=== PATIENT | male | born 1935 | race Caucasian/White ===

== ENCOUNTER 2018-08-02 11:24 | Inpatient (IN) | payer MEDICARE ==
[2018-08-02 12:10] LABS: ADD MAN DIFF? NO
[2018-08-02 12:19] LABS: WHITE BLOOD COUNT 9.8 10^3/ul (4.8-10.8)
[2018-08-02 12:19] LABS: BASOPHIL # 0.1 10^3/ul (0.0-0.1); BASOPHILS % 0.6 % (0.0-2.0); EOSINOPHILS # 0.3 10^3/ul (0.0-0.5); EOSINOPHILS % 3.2 % (0.0-7.0); HEMOGLOBIN 11.1 g/dl (14.0-18.0); LYMPHOCYTES # 2.2 10^3/ul (0.8-2.9); LYMPHOCYTES % 22.7 % (15.0-51.0); MEAN CORPUSCULAR HEMOGLOBIN 27.3 pg (29.0-33.0); MEAN CORPUSCULAR HGB CONC 30.8 g/dl (32.0-37.0); MEAN CORPUSCULAR VOLUME 88.7 fl (82.0-101.0); MEAN PLATELET VOLUME 8.3 fl (7.4-10.4); MONOCYTE # 0.9 10^3/ul (0.3-0.9); MONOCYTES % 9.1 % (0.0-11.0); NEUTROPHIL # 6.2 10^3/ul (1.6-7.5); NEUTROPHILS % 63.9 % (39.0-77.0); PLATELET COUNT 248 10^3/UL (140-415); RED BLOOD COUNT 4.06 10^6/ul (4.70-6.10); RED CELL DISTRIBUTION WIDTH 16.3 % (11.5-14.5)
[2018-08-02 12:35] LABS: ALANINE AMINOTRANSFERASE 17 IU/L (13-69); ALBUMIN 3.6 g/dl (3.3-4.9); ALBUMIN/GLOBULIN RATIO 1.12; ALKALINE PHOSPHATASE 95 IU/L (42-121); ANION GAP 10 (5-13); ASPARTATE AMINO TRANSFERASE 18 IU/L (15-46); BLOOD UREA NITROGEN 19 mg/dl (7-20); CALCIUM 9.3 mg/dl (8.4-10.2); CARBON DIOXIDE 25 mmol/L (21-31); CHLORIDE 106 mmol/L (97-110); CHOL/HDL RATIO 4.4 RATIO; CHOLESTEROL 155 mg/dl (100-200); CREATININE 1.23 mg/dl (0.61-1.24); GLUCOSE 98 mg/dl (70-220); HDL CHOLESTEROL 35 mg/dl (31-75); LDL CHOLESTEROL,CALCULATED 71 mg/dl; POTASSIUM 4.4 mmol/L (3.5-5.1); SODIUM 141 mmol/L (135-144); TOTAL PROTEIN 6.8 g/dl (6.1-8.1); TRIGLYCERIDES 244 mg/dl (0-149)
[2018-08-02 12:36] LABS: INR 0.92; PROTIME 12.5 Sec (11.9-14.9)
[2018-08-02 12:46] LABS: TROPONIN-I 0.021 ng/ml (0.000-0.120)
[2018-08-02] MEDS: ASPIRIN 325 MG TAB PO (12:59)
[2018-08-02 13:13] LABS: HEMOGLOBIN A1C 5.1 % (0-5.9)
[2018-08-02 16:51] LABS: ADD UMIC NO; UR ASCORBIC ACID 40 mg/dL (NEGATIVE); UR BILIRUBIN (Dip) NEGATIVE (NEGATIVE); UR BLOOD (Dip) NEGATIVE (NEGATIVE); UR CLARITY CLEAR (CLEAR); UR COLOR YELLOW (YELLOW); UR GLUCOSE (Dip) NEGATIVE (NEGATIVE); UR KETONES (Dip) NEGATIVE (NEGATIVE); UR LEUKOCYTE ESTERASE (Dip) NEGATIVE Leu/ul (NEGATIVE); UR NITRITE (Dip) NEGATIVE (NEGATIVE); UR TOTAL PROTEIN (Dip) NEGATIVE (NEGATIVE); UR UROBILINOGEN (Dip) NEGATIVE (NEGATIVE)
[2018-08-02 17:15] LABS: AMPHETAMINE/METHAMPHETAMINE Negative (NEGATIVE); BARBITURATES Negative (NEGATIVE); BENZODIAZEPINES Negative (NEGATIVE); CANNABINOIDS Negative (NEGATIVE); COCAINE Negative (NEGATIVE); OPIATES Negative (NEGATIVE)
[2018-08-02] MEDS ORDERED: ATORVASTATIN 10 MG TAB PO (21:00)
[2018-08-02] MEDS: traZODone 50 MG TAB PO (21:44)
[2018-08-03 05:47] LABS: ADD MAN DIFF? NO
[2018-08-03 05:52] LABS: WHITE BLOOD COUNT 8.7 10^3/ul (4.8-10.8)
[2018-08-03 05:53] LABS: BASOPHIL # 0.1 10^3/ul (0.0-0.1); BASOPHILS % 0.7 % (0.0-2.0); EOSINOPHILS # 0.4 10^3/ul (0.0-0.5); EOSINOPHILS % 4.3 % (0.0-7.0); HEMATOCRIT 32.7 % (42.0-52.0); HEMOGLOBIN 10.1 g/dl (14.0-18.0); LYMPHOCYTES # 2.6 10^3/ul (0.8-2.9); LYMPHOCYTES % 29.3 % (15.0-51.0); MEAN CORPUSCULAR HEMOGLOBIN 27.4 pg (29.0-33.0); MEAN CORPUSCULAR HGB CONC 30.9 g/dl (32.0-37.0); MEAN CORPUSCULAR VOLUME 88.9 fl (82.0-101.0); MEAN PLATELET VOLUME 8.1 fl (7.4-10.4); MONOCYTE # 0.8 10^3/ul (0.3-0.9); MONOCYTES % 9.5 % (0.0-11.0); NEUTROPHIL # 4.9 10^3/ul (1.6-7.5); NEUTROPHILS % 55.9 % (39.0-77.0); PLATELET COUNT 230 10^3/UL (140-415); RED BLOOD COUNT 3.68 10^6/ul (4.70-6.10); RED CELL DISTRIBUTION WIDTH 16.2 % (11.5-14.5)
[2018-08-03 06:13] LABS: ANION GAP 8 (5-13); BLOOD UREA NITROGEN 21 mg/dl (7-20); CARBON DIOXIDE 26 mmol/L (21-31); CHLORIDE 108 mmol/L (97-110); GLUCOSE 94 mg/dl (70-220); PHOSPHORUS 4.1 mg/dl (2.5-4.9); POTASSIUM 4.1 mmol/L (3.5-5.1); SODIUM 142 mmol/L (135-144)
[2018-08-03] MEDS: LOSARTAN 50 MG TAB PO (08:17)
[2018-08-03] MEDS: CLOPIDOGREL 75 MG TAB PO (08:17)
[2018-08-03] MEDS: ATENOLOL 25 MG TAB PO (08:18)
[2018-08-03] MEDS ORDERED: ATENOLOL 50 MG TAB PO (09:00)
[2018-08-03] MEDS ORDERED: LOSARTAN 50 MG TAB PO (09:00)
[2018-08-03] MEDS ORDERED: ASPIRIN 325 MG TAB PO (09:00)
[2018-08-03] MEDS: BUPROPION (XL) 150 MG TAB PO (10:26)
[2018-08-03] MEDS: DOCUSATE SODIUM 100 MG CAP PO ×2 (11:29→20:59)
[2018-08-03] MEDS: POLYETHYLENE GLYCOL 17 GM PACKET PO (12:31)
[2018-08-03] MEDS: traZODone 50 MG TAB PO (20:59)
[2018-08-03] MEDS: ATORVASTATIN 40 MG TAB PO (20:59)
[2018-08-04] MEDS: BUPROPION (XL) 150 MG TAB PO (08:47)
[2018-08-04] MEDS: DOCUSATE SODIUM 100 MG CAP PO ×2 (08:49→20:22)
[2018-08-04] MEDS: LOSARTAN 50 MG TAB PO (08:49)
[2018-08-04] MEDS: CLOPIDOGREL 75 MG TAB PO (08:49)
[2018-08-04] MEDS: ATENOLOL 25 MG TAB PO (08:49)
[2018-08-04] MEDS: POLYETHYLENE GLYCOL 17 GM PACKET PO (17:41)
[2018-08-04] MEDS: BALSAM PERU/CASTOR OIL 60 GM TUBE TOP (17:41)
[2018-08-04] MEDS: ATORVASTATIN 40 MG TAB PO (20:22)
[2018-08-04] MEDS: traZODone 50 MG TAB PO (20:22)
[2018-08-05] MEDS: CLOPIDOGREL 75 MG TAB PO (08:18)
[2018-08-05] MEDS: BUPROPION (XL) 150 MG TAB PO (08:18)
[2018-08-05] MEDS: LOSARTAN 50 MG TAB PO (08:18)
[2018-08-05] MEDS: DOCUSATE SODIUM 100 MG CAP PO ×2 (08:18→21:24)
[2018-08-05] MEDS: ATENOLOL 25 MG TAB PO (08:18)
[2018-08-05] MEDS: BALSAM PERU/CASTOR OIL 60 GM TUBE TOP (08:19)
[2018-08-05] MEDS: ATORVASTATIN 40 MG TAB PO (21:24)
[2018-08-05] MEDS: APIXABAN 5 MG TABLET PO (21:24)
[2018-08-05] MEDS: traZODone 50 MG TAB PO (21:24)
[2018-08-06] MEDS: BUPROPION (XL) 150 MG TAB PO (08:08)
[2018-08-06] MEDS: DOCUSATE SODIUM 100 MG CAP PO ×2 (08:08→20:17)
[2018-08-06] MEDS: APIXABAN 5 MG TABLET PO ×2 (08:08→20:17)
[2018-08-06] MEDS: LOSARTAN 50 MG TAB PO (08:09)
[2018-08-06] MEDS: ATENOLOL 25 MG TAB PO (08:09)
[2018-08-06] MEDS: BALSAM PERU/CASTOR OIL 60 GM TUBE TOP (08:10)
[2018-08-06] MEDS: ATORVASTATIN 40 MG TAB PO (20:17)
[2018-08-06] MEDS: traZODone 50 MG TAB PO (21:05)
[2018-08-06 21:55] LABS: ADD UMIC YES; UR ASCORBIC ACID NEGATIVE (NEGATIVE); UR BILIRUBIN (Dip) NEGATIVE (NEGATIVE); UR BLOOD (Dip) 2+ mg/dL (NEGATIVE); UR CLARITY CLEAR (CLEAR); UR COLOR YELLOW (YELLOW); UR GLUCOSE (Dip) NEGATIVE (NEGATIVE); UR KETONES (Dip) NEGATIVE (NEGATIVE); UR LEUKOCYTE ESTERASE (Dip) NEGATIVE Leu/ul (NEGATIVE); UR NITRITE (Dip) NEGATIVE (NEGATIVE); UR RBC 10 /HPF (0-5); UR SPECIFIC GRAVITY (Dip) 1.019 (1.003-1.030); UR TOTAL PROTEIN (Dip) NEGATIVE (NEGATIVE); UR UROBILINOGEN (Dip) NEGATIVE (NEGATIVE); UR WBC 4 /HPF (0-5)
[2018-08-07] MEDS: APIXABAN 5 MG TABLET PO (08:55)
[2018-08-07] MEDS: BUPROPION (XL) 150 MG TAB PO (08:55)
[2018-08-07] MEDS: DOCUSATE SODIUM 100 MG CAP PO (08:56)
[2018-08-07] MEDS: ATENOLOL 25 MG TAB PO (08:57)
[2018-08-07] MEDS: LOSARTAN 50 MG TAB PO (08:57)
[2018-08-07] MEDS: BALSAM PERU/CASTOR OIL 60 GM TUBE TOP (13:21)
== END 2018-08-07 19:13 | DRG 65 ==
LOC: 5EC 08-06 16:58 → E/R 11:24 → 6WM 16:56
DX: I63.9 Cerebral infarction, unspecified (principal); G81.91 Hemiplegia, unspecified affecting right dominant side; I10 Essential (primary) hypertension; Z91.81 History of falling; Z85.3 Personal history of malignant neoplasm of breast; E78.5 Hyperlipidemia, unspecified; F41.9 Anxiety disorder, unspecified; G47.00 Insomnia, unspecified; Z85.118 Personal history of other malignant neoplasm of bronchus and lung
CPT/HCPCS: 36415; 70450; 71045; 80048; 80053; 80061; 80307; 81001; 81003; 82962; 83036; 83735; 84100; 84484; 85025; 85610; 85730; 86850; 86900; 86901; 87086; 93005; 93306; 93880; 97110; 97116; 97161; 97167; 97530; 99285-25